=== PATIENT | male | born 1955 | race Caucasian/White ===

== ENCOUNTER 2016-04-19 09:53 | Day surgery (SDC) | payer OTHER ==
[~2016-04-19 09:53] MED LIST: Buffered Lidocaine 1% SYR 3ML* 3 ML/SYR SYRINGE INTRADERM ONE; NS 0.9% 1000 ML* 1,000 ML IV SCH
[2016-04-19] MEDS ORDERED: Ketorolac INJ* 30 MG/ML 1 ML VIAL ONE (09:54)
[2016-04-19] MEDS ORDERED: ceFAZolin 2 GM PREMIX (*) 2 GM/50 ML BAG IVPB ONE (09:54)
[2016-04-19] MEDS ORDERED: Famotidine IV* 10 MG/ML 2 ML (20 mg) ONE (12:08)
[2016-04-19] MEDS ORDERED: fentaNYL* 50 MCG/ML 2 ML VIAL (100 MCG VIAL) ONE (12:08)
[2016-04-19] MEDS ORDERED: Midazolam* 1 MG/ML 2 ML VIAL (2 MG) ONE (12:08)
[2016-04-19] MEDS ORDERED: Lidocaine 1% INJ* 10 MG/ML 30 ML SDV ONE (12:42)
[2016-04-19] MEDS ORDERED: Bupivacaine 0.5% W/EPI SDV* 30 ML VIAL ONE (12:42)
[2016-04-19] MEDS ORDERED: Lidocaine 2% PF * 5 ML VIAL ONE (13:15)
[2016-04-19] MEDS ORDERED: Propofol* 10 MG/ML 20 ML BTL IV PUSH ONE (13:15)
[2016-04-19] MEDS ORDERED: Dexamethasone IV* 4 MG/ML 1 ML (4 MG) ONE (13:15)
[2016-04-19] MEDS ORDERED: Desflurane* 240 ML INH ONE (13:15)
[2016-04-19] MEDS ORDERED: Ondansetron INJ* 2 MG/ML VIAL IV PRN (13:31)
[2016-04-19] MEDS ORDERED: PROCHLORPERAZINE INJ 5 MG/ML 2 ML VIAL IV PRN (13:31)
[2016-04-19] MEDS ORDERED: HYDROmorphone INJ* 1 MG/ML CARPUJECT SYRINGE IV PRN (13:31)
[2016-04-19] MEDS ORDERED: Acetaminophen TAB* 325 MG PO PRN (13:31)
[2016-04-19 14:56] VITALS: BP 117/78
--- NOTE | 2016-04-20 03:47 | OP ---
DATE OF OPERATION: 04/19/16 - [facility] DATE OF : 55 SURGEON: Gaston Virgen MD [employer]ACHINE OPERATOR: Tess Guerra NP ANESTHESIOLOGIST: Dr. Porras. ANESTHESIA: General anesthetic, local infiltration. PRE-OP DIAGNOSIS: Umbilical hernia. POST-OP DIAGNOSIS: Umbilical hernia. OPERATIVE PROCEDURE: Open umbilical hernia repair with mesh. DESCRIPTION OF PROCEDURE: The patient was supine on the operative table. After adequate general anesthetic, compression stockings, Caleb Hugger warmer, and intravenous antibiotics, the abdomen was prepped with antiseptic and draped in a sterile fashion. Local infiltrative anesthesia was administered. A supraumbilical curvilinear incision was created. This was about 3 cm in length. Dissection was carried down to a hernia defect. This had a bulge of preperitoneal fat, which was approximately 2 x 3 cm. This was dissected free and reduced. This was actually just 0.5 cm away from a second defect, which was actually right under the umbilical skin. These two were connected leaving a defect of approximately 2 x 3 cm oriented more longitudinally. The preperitoneal plane was developed and an underlay patch 8 [address] into [address] and sutured up underneath using 0 Polysorb and then the fascia was closed in the midline using 0 Polysorb. The umbilical skin was tacked back down with 3-0 Polysorb and skin closed with 5-0 Polysorb followed by Steri-Strips. He tolerated the procedure well, was brought to Recovery in good condition. No complications. No drains. No pathologic specimens. Sponge and instrument counts correct. Estimated blood loss was 20 mL. CC: Dr. Gaston Virgen; Dr. Huong Rivero * [id number]/[facility] #: [id number] [facility]
== END 2016-04-19 15:16 | disposition home or self-care (01) ==
LOC: OR 09:53
PROVIDERS: ATTEND Surgery
DX: K42.9 Umbilical hernia without obstruction or gangrene (principal); I10 Essential (primary) hypertension; Z87.891 Personal history of nicotine dependence
CPT/HCPCS: A9270-GY; C1781; J0690; J1100; J1885; J2250; J2704; J3010

== ENCOUNTER 2017-04-14 09:10 | Emergency (ER) | payer OTHER ==
[2017-04-14 09:31] VITALS: BP 136/88
[2017-04-14] MEDS ORDERED: Tetan/Diph/Pertus SYR(Tdap)* 0.5 ML SYR(BOOSTRIX) use SYR IM ONE (09:34)
--- NOTE | 2017-04-14 09:57 | UC ---
Laceration HPI - HPI Summary HPI Summary: Patient presents 1 days s/p small laceration (abrasion) to his right index finger, he cut it last night with a sheet-rock knife. He states it bleed alot, and then applied a band-lazaro. He states today that he does not need an stitches, but he does need a tetanus shot. He states he is able to move his finger without any prolbmes, and he denies any numbness or tingling. - History Of Current Complaint Chief Complaint: UCLaceration Stated Complaint: FINGER LACERATION Time Seen by Provider: 04/14/17 09:46 Hx Obtained From: Patient Laceration Location: Finger Mechanism Of Injury: Sharp Trauma Pain Intensity: 0 Aggravating Factors: Nothing - Allergies/Home Medications Allergies/Adverse Reactions: Allergies Allergy/AdvReac Type Severity Reaction Status Date / Time No Known Allergies Allergy Verified 04/14/17 09:27 PMH/Surg Hx/FS Hx/Imm Hx Previously Healthy: Yes Endocrine History: Dyslipidemia Cardiovascular History: Hypertension - Surgical History Surgical History: Yes Surgery Procedure, Year, and Place: ABDOMINAL HERNIA REPAIR A CHILD,. AGE 25 VARICOCELECTOMY, [facility]. VARICOSE VEIN PROCEDURE, OFFICE - Family History Known Family History: Positive: Cardiac Disease, Hypertension, Other - stroke - Social History Occupation: Employed Full-time Lives: With Family Alcohol Use: Weekly Substance Use Type: None Smoking Status (MU): Former Smoker Type: Cigarettes Amount Used/How Often: 3/4 PPD FOR ABOUT 20+ YEARS Have You Smoked in the Last Year: No When Did the Patient Quit Smoking/Using Tobacco: 1999 - Immunization History Most Recent Tetanus Shot: unk Review of Systems Constitutional: Negative Skin: Other - right index finger laceration Eyes: Negative ENT: Negative Respiratory: Negative Cardiovascular: Negative Gastrointestinal: Negative Genitourinary: Negative Motor: Negative Neurovascular: Negative Musculoskeletal: Negative Neurological: Negative Psychological: Negative Is Patient Immunocompromised?: No All Other Systems Reviewed And Are Negative: Yes Physical Exam Triage Information Reviewed: Yes Appearance: Well-Appearing Vital Signs: Initial Vital Signs Temp 97.8 F 04/14/17 09:28 Pulse 79 04/14/17 09:28 Resp 18 04/14/17 09:28 BP 136/88 04/14/17 09:28 Pulse Ox 99 04/14/17 09:28 Vital Signs Reviewed: Yes Eye Exam: Normal ENT Exam: Normal Neck exam: Normal Neck: Positive: 1 Respiratory Exam: Normal Cardiovascular Exam: Normal Abdominal Exam: Normal Musculoskeletal Exam: Normal Neurological Exam: Normal Psychological Exam: Normal Skin Exam: Other - right distal lateral index finger with superifial skin abrasion/laceration 1.0 cm in length, well approximated, neuro-vasc intact. Laceration Repair - Laceration Repair 1 Laceration Size After Repair: Length (cm) - 1.0 Modified For Repair: No Cleansing Completed Via Routine Prep: No Irrigation With Pressure Irrigation Device: No Suture Type: Other - no suturing required. Laceration Course/Dx - Course/Dx Course Of Treatment: Patient presents 24 hours s/p superficial laceration to the right distal lateral index finger, he states he cleaned it, and covered it last night. He is neuro-vasc intact. He does not require suturing. His tetanus was updated and he was discharged home in stable condition. The band-aide was removed and the laceration inspected, it is already amost completley healed. wound care insruction was reviewed and included to keep the area clean and dry, apply clean band-aides an needed, Monitor for sign of indection which he already new, redness, swelling, pain, warmth and/or dranage. If these symtpoms develop he understands that he will need to seek additional medical attention. He was discharged home in stable condition. - Differential Dx - Laceration/Wound Differental Diagnoses: Laceration, Other - tetanus vaccine Provider Diagnoses: laceration. tetanus vaccine Discharge - Discharge Plan Condition: Stable Disposition: HOME Patient Education Materials: Diphtheria/Acellular Pertussis/Tetanus Vaccine ( By injection), Laceration (DC) Referrals: Huong Rivero MD [Primary Care Provider] - Images Hands: 1 - are of laceration
== END 2017-04-14 09:55 | disposition home or self-care (01) ==
LOC: UCEAST 09:10
DX: S61.210A Laceration without foreign body of right index finger without damage to nail, initial encounter (principal); W26.0XXA Contact with knife, initial encounter; Y93.89 Activity, other specified; Y92.9 Unspecified place or not applicable; Z23 Encounter for immunization; E78.5 Hyperlipidemia, unspecified; I10 Essential (primary) hypertension; Z87.891 Personal history of nicotine dependence
CPT/HCPCS: 90471; 90715; 99211; G0463